=== PATIENT | female | born 1950 ===

== ENCOUNTER → 2025-03-03 07:04 | Outpatient (REF) | payer OTHER, SELFPAY | LOC: PAVMRI 07:04 | PROVIDERS: ATTENDING PHYSICIAN Internal Medicine Rheumatology; FAMILY PHYSICIAN Internal Medicine | DX: M45.6 Ankylosing spondylitis lumbar region (principal); M45.A6 Non-radiographic axial spondyloarthritis of lumbar region; M54.40 Lumbago with sciatica, unspecified side; Z15.89 Genetic susceptibility to other disease | CPT/HCPCS: 72148 ==